=== PATIENT | female | born 1935 | race Caucasian/White ===

== ENCOUNTER 2017-10-16 13:09 | Emergency (ER) | payer MEDICARE, BC ==
[~2017-10-16] VITALS: Ht 162.6 cm; Wt 86.2 kg
--- NOTE | 2017-10-16 13:15 | NUR ---
BB GRANDSON FOR ON/OFF WEAKNESS, NAUSEA X 8 DAYS. STATES SHE MAY BE DEHYDRATED. PATIENT IS A/OX 4. BREATHING EVEN AND UNLABORED. NO SOB. NO NEURO DEFICITS. NAD. VITALS STABLE. SAFETY AND COMFORT MEASURES IN PLACE. AWAITING MD ORDERS.
[2017-10-16] MEDS ORDERED: IV NS 0.9% 1,000 ML BAG IV ONE (13:30)
--- NOTE | 2017-10-16 13:35 | NUR ---
NEW IV STARTED ON RAC, 20 G. BLOOD DRAWN AND SENT TO LAB.
--- NOTE | 2017-10-16 13:40 | NUR ---
PATIENT MEDICATED PER MD ORDERS.
[2017-10-16 13:53] LABS: BASOPHILS % (AUTO) 0.4 % (0.0-2.0); EOSINOPHILS # (AUTO) 0.1 /CMM (0.0-0.7); EOSINOPHILS % (AUTO) 1.7 % (0.0-6.0); HEMATOCRIT 35 % (33-45); LYMPHOCYTES # (AUTO) 0.8 /CMM (0.8-4.8); LYMPHOCYTES % (AUTO) 12.7 % (20.0-44.0); MEAN CORPUSCULAR HEMOGLOBIN 31 PG (26.0-33.0); MEAN CORPUSCULAR HGB CONC 35 g/dl (31.0-36.0); MEAN CORPUSCULAR VOLUME 90 fL (82-100); MONOCYTES # (AUTO) 0.8 /CMM (0.1-1.30); MONOCYTES % (AUTO) 11.7 % (2.0-12.0); NEUTROPHILS # (AUTO) 4.9 /CMM (1.8-8.9); NEUTROPHILS % (AUTO) 73.5 % (43.0-81.0); PLATELET COUNT (AUTO) 288 /CMM (150-450); RED BLOOD CELL COUNT(AUTO) 3.85 MIL/uL (4.0-5.2); WHITE BLOOD COUNT (AUTO) 6.6 K/uL (4.3-11.0)
[2017-10-16 14:05] LABS: CALCIUM, SERUM 9.4 mg/dL (8.5-10.1); CARBON DIOXIDE 25 mmol/L (21-32); CHLORIDE 101 mmol/L (98-107); CREATININE 1.1 mg/dL (0.6-1.3); GLUCOSE 100 mg/dL (74-106); POTASSIUM 4.1 mmol/L (3.5-5.1); SODIUM SERUM 135 mmol/L (136-145); UREA NITROGEN, BLOOD 24 mg/dL (7-18)
[2017-10-16 14:14] LABS: TROPONIN I < 0.017 ng/mL (0.00-0.056)
[2017-10-16 14:51] LABS: APPEARANCE,URINE Clear (CLEAR); BILIRUBIN,URINE Negative (NEGATIVE); BLOOD, URINE Trace-intact Ery/uL (NEGATIVE); COLOR,URINE Yellow (YELLOW); KETONES,URINE Negative (NEGATIVE); LEUKOCYTE ESTERASE ,URINE Negative (NEGATIVE); NITRITE, URINE Negative (NEGATIVE); PH,URINE 5.5 (5.0-8.0); PROTEIN,URINE Negative (NEGATIVE); UGLUCOSE Negative (NEGATIVE); UROBILINOGEN,URINE 0.2 EU/dL (0.2)
[2017-10-16] MEDS ORDERED: ONDANSETRON HCL/PF 4 MG/2 ML VIAL IV ONE (15:00)
[2017-10-16] MEDS ORDERED: IV NS 0.9% 500 ML BAG IV ONE (15:00)
[2017-10-16 15:05] LABS: BACTERIA,URINE Few /HPF (None Seen); SQUAMOUS EPITHELIAL CELL,UR Few /HPF (None Seen); WBC,URINE 0-2 /HPF (0-3)
--- NOTE | 2017-10-16 15:06 | NUR ---
PATIENT STATING SHE IS NOT NAUSEOUS. ALSO REFUSED LAST 500 ML OF FLUIDS, STATING SHE FEELS FINE AND IS OKAY TO GO HOME. MD PROVIDED DISCHARGE ORDERS. Patient discharged to home in stable condition. Written and verbal after care instructions given. Patient verbalizes understanding of instruction. IV removed. Catheter intact and site benign. Pressure and 4x4 applied to site. No bleeding noted. Patient left with grandson.
[2017-10-16 15:10] VITALS: BP 142/71
== END 2017-10-16 15:12 | disposition home or self-care (01) ==
LOC: ER 13:13
DX: R11.10 Vomiting, unspecified (principal); E86.0 Dehydration; E03.9 Hypothyroidism, unspecified; E78.00 Pure hypercholesterolemia, unspecified; I10 Essential (primary) hypertension; I25.10 Atherosclerotic heart disease of native coronary artery without angina pectoris; I48.91 Unspecified atrial fibrillation; Z88.0 Allergy status to penicillin; Z88.2 Allergy status to sulfonamides; Z95.0 Presence of cardiac pacemaker; Z88.5 Allergy status to narcotic agent; Z88.6 Allergy status to analgesic agent; Z88.8 Allergy status to other drugs, medicaments and biological substances; Z85.3 Personal history of malignant neoplasm of breast
CPT/HCPCS: 36415; 80048-TC; 81000-TC; 82962-TC; 84484-TC; 85025-TC; A4606; J7030; Z7610

== ENCOUNTER 2022-04-22 17:53 | Inpatient (IN) | payer MEDICARE, BC ==
[~2022-04-22] VITALS: Ht 162.6 cm; Wt 79.4 kg
[2022-04-22] MEDS ORDERED: IV NS 0.9% 500 ML BAG IV ONE (18:00)
--- NOTE | 2022-04-22 18:00 | NUR ---
[id number] home for worsening weakness, GLF today. PLACED ON BED, AA0X3, BREATHING EVEN AND UNLABORED.
--- NOTE | 2022-04-22 18:19 | NUR ---
IV ESTABLISHED L AC 18G, ADDITIONAL IV ESTABLISHED R FA 20G. LABS DRAWN AND COLLECTED AT BEDSIDE.
--- NOTE | 2022-04-22 18:23 | NUR ---
COVID SWAB DONE AND SENT TO LAB
[2022-04-22 19:06] LABS: CALCIUM, SERUM 8.8 mg/dL (8.5-10.1); CREATININE 1.1 mg/dL (0.6-1.3); POTASSIUM 3.2 mmol/L (3.5-5.1)
[2022-04-22 19:17] LABS: THYROID STIMULATING HORMONE 13.885 uIU/mL (0.358-3.74)
[2022-04-22 19:51] LABS: BASOPHILS % (AUTO) 0.4 % (0.0-2.0); EOSINOPHILS % (AUTO) 0.2 % (0.0-6.0); HEMATOCRIT 33 % (33-45); HEMOGLOBIN 11.1 g/dL (11.5-14.8); LYMPHOCYTES # (AUTO) 0.8 K/uL (0.8-4.8); LYMPHOCYTES % (AUTO) 10.6 % (20.0-44.0); MEAN CORPUSCULAR HGB CONC 33 g/dl (31.0-36.0); MEAN CORPUSCULAR VOLUME 85 fL (82-100); MONOCYTES # (AUTO) 0.7 K/uL (0.1-1.30); MONOCYTES % (AUTO) 8.9 % (2.0-12.0); NEUTROPHILS # (AUTO) 6.1 K/uL (1.8-8.9); NEUTROPHILS % (AUTO) 79.9 % (43.0-81.0); PLATELET COUNT (AUTO) 162 K/uL (150-450); RED BLOOD CELL COUNT(AUTO) 3.91 MIL/uL (4.0-5.2); WHITE BLOOD COUNT (AUTO) 7.6 K/uL (4.3-11.0)
[2022-04-22] MEDS ORDERED: IV NS 0.9% 1,000 ML IV ONE (20:30)
--- NOTE | 2022-04-22 21:30 | NUR ---
REPORT GIVEN TO RICKY GOMEZ ROOM-[id number] FOR WILLIAM
--- NOTE | 2022-04-22 22:00 | NUR ---
ICU NOTE REPORT RECEIVED FROM ZAHRA GOMEZ IN THE ER. PATIENT ARRIVED VIA GURNEY. PATIENT AWAKE AND ALERT A&OX3. ALL VSS. PATIENT SATTING AT 100% ON 2L NC. PATIENT VOIDING VIA OLIVEIRA CATHETER. IV RFA #20G AND LAF #18G BOTH PATENT, INTACT, AND FLUSHED WITH NS. PATIENT RUNNING 0.9% NS @250MLS/HR TO BE CHANGED TO 50MLS/HR WHEN BAG IS FINISHED. DIET CARDIAC LOW FAT/ LOW CHOL. SKIN INTACT. ALL SAFTEY FALL PRECAUTIONS IN PLACE BED LOCK ON, BED IN LOWEST POSITION, BED ALARM ON, SIDE RAILS UP, CALL LIGHT WITHIN REACH, PATIENT'S ROOM IN FRONT OF NURSING STATION. WILL CONTINUE TO MONITOR.
--- NOTE | 2022-04-22 22:30 | NUR ---
ICU NOTE PATIENT WAS CLEANED, CHANGED AND PROVIDED WITH WARM BLANKETS. PATIENT RESTING COMFORTABLY ON THE BED SAFETY PRECAUTIONS IN PLACE. ALL VSS. WILL CONTINUE TO MONITOR.
[2022-04-23] VITALS (35 sets, daily range): BP systolic 100–168; BP diastolic 44–91
[2022-04-23 06:05] LABS: BASOPHILS % (AUTO) 0.6 % (0.0-2.0); EOSINOPHILS % (AUTO) 1.9 % (0.0-6.0); HEMATOCRIT 29 % (33-45); HEMOGLOBIN 9.6 g/dL (11.5-14.8); LYMPHOCYTES # (AUTO) 1.1 K/uL (0.8-4.8); LYMPHOCYTES % (AUTO) 19.7 % (20.0-44.0); MEAN CORPUSCULAR HGB CONC 33 g/dl (31.0-36.0); MEAN CORPUSCULAR VOLUME 85 fL (82-100); MONOCYTES # (AUTO) 0.6 K/uL (0.1-1.30); NEUTROPHILS # (AUTO) 3.8 K/uL (1.8-8.9); NEUTROPHILS % (AUTO) 66.8 % (43.0-81.0); PLATELET COUNT (AUTO) 125 K/uL (150-450); RED BLOOD CELL COUNT(AUTO) 3.37 MIL/uL (4.0-5.2); WHITE BLOOD COUNT (AUTO) 5.7 K/uL (4.3-11.0)
[2022-04-23 06:38] LABS: ALANINE AMINOTRANSFERASE 43 U/L (12-78); ALKALINE PHOSPHATASE 78 U/L (46-116); ASPARTATE AMINOTRANSFERASE 104 U/L (15-37); BILIRUBIN,TOTAL 0.5 mg/dL (0.2-1.0); CALCIUM, SERUM 8.1 mg/dL (8.5-10.1); CARBON DIOXIDE 27 mmol/L (21-32); CHLORIDE 108 mmol/L (98-107); GLUCOSE 97 mg/dL (74-106); MAGNESIUM 2.3 mg/dL (1.8-2.4); PHOSPHORUS 3.7 mg/dL (2.5-4.9); POTASSIUM 2.9 mmol/L (3.5-5.1); SODIUM SERUM 141 mmol/L (136-145); TOTAL PROTEIN, SERUM 5.9 g/dL (6.4-8.2); UREA NITROGEN, BLOOD 23 mg/dL (7-18)
--- NOTE | 2022-04-23 07:13 | NUR ---
ICU CLOSING NOTE PATIENT AWAKE AND ALERT A&OX3. ALL VSS. PATIENT SATTING AT 100% ON 2L NC. PATIENT VOIDING VIA OLIVEIRA CATHETER. IV RFA #20G AND LAF #18G BOTH PATENT, INTACT, AND FLUSHED WITH NS. PATIENT RUNNING 0.9% NS 50MLS/HR. DIET CARDIAC LOW FAT/ LOW CHOL. SKIN INTACT. ALL SAFETY FALL PRECAUTIONS IN PLACE BED LOCK ON, BED IN LOWEST POSITION, BED ALARM ON, SIDE RAILS UP, CALL LIGHT WITHIN REACH, PATIENT'S ROOM IN FRONT OF NURSING STATION. ALL QUESTIONS ANSWERED AND CARE ENDORSED TO DAY SHIFT NURSE.
--- NOTE | 2022-04-23 07:27 | NUR ---
PAINTING DEPARTMENT SUPERVISOR OPENING NOTES Patient received in bed asleep on 2 liter 02 via n/c with 02 sat of 99%. Bed is in lowest and locked position. IV fluids running at 50 ml hour. Vitals WNL. Called CLERICAL SUPPORT Adal called regarding potassium level of 2.9. Per CLERICAL SUPPORT to contact pharmacy to replace. Will continue to monitor. Call light with in reach.
[2022-04-23] MEDS ORDERED: POTASSIUM CL. PREMIX PERIPHER. 50 ML IV SCH (07:30)
[2022-04-23 07:50] LABS: THYROID STIMULATING HORMONE 8.102 uIU/mL (0.358-3.74)
[2022-04-23] MEDS: POTASSIUM CHLORIDE 20 MEQ TAB.PRT.SR PO SCH ×3 (08:04→10:16)
[2022-04-23 08:51] LABS: IRON, SERUM 87 ug/dl (50-175); TOTAL IRON BINDING CAPACITY 313 ug/dl (250-450)
[2022-04-23] MEDS: ENOXAPARIN SODIUM 40 MG/0.4 ML DISP.SYRIN SQ SCH (08:54)
[2022-04-23 09:00] LABS: CHOLESTEROL 109 mg/dL (<200); FERRITIN 31 ng/mL (8-388); HDL CHOLESTEROL 54 mg/dL (40-60); LDL 49 mg/dL (0-99); TRIGLYCERIDES 52 mg/dL (30-150)
[2022-04-23] MEDS ORDERED: ACET-73 PO (09:11)
[2022-04-23] MEDS ORDERED: ACET-1951 PO (09:11)
[2022-04-23] MEDS ORDERED: LEVO75TA7 PO (09:11)
[2022-04-23] MEDS ORDERED: OMEP20CA15 PO (09:11)
[2022-04-23] MEDS ORDERED: EZET10TA32 PO (09:11)
[2022-04-23] MEDS ORDERED: APIX5TAB PO (09:11)
[2022-04-23] MEDS ORDERED: SERT50TA12 PO (09:11)
[2022-04-23] MEDS ORDERED: METO50TA16 PO (09:11)
[2022-04-23] MEDS ORDERED: FURO-145 PO (09:11)
[2022-04-23] MEDS ORDERED: PRAV80TA21 PO (09:11)
[2022-04-23] MEDS ORDERED: IV NS 0.9% 500 ML IV ONE (10:00)
[2022-04-23 12:06] LABS: BILIRUBIN,URINE NEGATIVE (NEGATIVE); COLOR,URINE YELLOW (YELLOW); LEUKOCYTE ESTERASE ,URINE LARGE (NEGATIVE); NITRITE, URINE POSITIVE (NEGATIVE); PH,URINE 5.5 (5.0-8.0); PROTEIN,URINE NEGATIVE (NEGATIVE); UGLUCOSE NEGATIVE (NEGATIVE); UROBILINOGEN,URINE 0.2 EU/dL (0.2)
[2022-04-23 12:14] LABS: BACTERIA,URINE Few /HPF (None Seen); SQUAMOUS EPITHELIAL CELL,UR Few /HPF (None Seen)
[2022-04-23] MEDS ORDERED: diphenhydrAMINE HCL 25 MG CAPSULE PO SCH (18:00)
[2022-04-23] MEDS: EZETIMIBE 10 MG TABLET PO SCH (18:30)
--- NOTE | 2022-04-23 19:39 | NUR ---
PRINCIPAL LAW CLERK Closing NOTES Patient received in bed awake on room air 02 sat of 98%. Bed is in lowest and locked position. IV fluids running at 50 ml hour. Vitals WNL. Patient assisted out of bed x 2 during shift but unable to stand for long period of time. Patient unable to ambulate to commode and refused bedpan. Will continue to monitor. Call light with in reach. Endorsed to next shift.
[2022-04-23] MEDS: IV NS 0.9% 1,000 ML IV PRN ×2 (20:42)
--- NOTE | 2022-04-23 20:54 | NUR ---
MANAGER RETAIL. INITIAL ASSESSMENT. RECEIVED THE PT REST IN BED. AWAKE, ALERT. FOLLOW COMMANDS. PT IS ROOM AIR. SAT 98%. NO ACUTE DISTRESS NOTED. SEARCH ENGINE OPTIMIZATION ANALYST SHOWING A FIB. HOB ELEVATED. BLAYNE LOWER EXTREMITY SWOLLEN. A FEBRILE. WILL CONTINUE TO MONITOR VITALS.
[2022-04-23] MEDS: ACETAMINOPHEN ES 500 MG TABLET PO SCH (22:04)
[2022-04-23] MEDS: ATORVASTATIN 10 MG TABLET PO SCH (22:04)
[2022-04-23] MEDS: diphenhydrAMINE HCL 25 MG CAPSULE PO SCH (22:04)
[2022-04-24] VITALS (31 sets, daily range): BP systolic 112–175; BP diastolic 27–130
--- NOTE | 2022-04-24 05:55 | NUR ---
curriculum designer, am care given. linen changed. pt tolerated room air. sat 98%. no acute distress noted. monitoring coordinator showing a fib . iv rt hand 20g. ivf ns 50 ml/h. hob elevated. a febrile. ill continue to monitor vitals.
--- NOTE | 2022-04-24 08:00 | NUR ---
rn notes received patient a/o x3 with forgetfulness. patient room air no acute respiratory distress, bedside monitor show HR- 103 afib, infusing NS @ 50ml/hr. patient refused pain, total care, assist turn and reposition q 2 hr. patient using diaper. due medication administered. call light within to reach will follow up.
[2022-04-24] MEDS: ENOXAPARIN SODIUM 40 MG/0.4 ML DISP.SYRIN SQ SCH (08:43)
[2022-04-24] MEDS: LEVOTHYROXINE SODIUM 75 MCG TABLET PO SCH (08:44)
[2022-04-24] MEDS: PANTOPRAZOLE 40 MG TABLET.DR PO SCH (08:44)
[2022-04-24] MEDS: ACETAMINOPHEN ES 500 MG TABLET PO SCH ×2 (08:45→22:00)
[2022-04-24] MEDS: SERTRALINE HCL 50 MG TABLET PO SCH (08:45)
[2022-04-24] MEDS: METOPROLOL TARTRATE 50 MG TABLET PO SCH ×2 (08:46→17:10)
[2022-04-24] MEDS: LEVOFLOXACIN (250MG) 250 MG TABLET PO SCH (08:46)
[2022-04-24 09:03] LABS: ALANINE AMINOTRANSFERASE 52 U/L (12-78); ALBUMIN 3.6 g/dL (3.4-5.0); ALKALINE PHOSPHATASE 86 U/L (46-116); ASPARTATE AMINOTRANSFERASE 103 U/L (15-37); BILIRUBIN,TOTAL 0.6 mg/dL (0.2-1.0); CALCIUM, SERUM 8.8 mg/dL (8.5-10.1); CARBON DIOXIDE 26 mmol/L (21-32); CHLORIDE 103 mmol/L (98-107); CREATININE 0.9 mg/dL (0.6-1.3); GLUCOSE 94 mg/dL (74-106); PHOSPHORUS 2.4 mg/dL (2.5-4.9); POTASSIUM 3.2 mmol/L (3.5-5.1); SODIUM SERUM 139 mmol/L (136-145); TOTAL PROTEIN, SERUM 6.8 g/dL (6.4-8.2); UREA NITROGEN, BLOOD 14 mg/dL (7-18)
[2022-04-24 09:11] LABS: CREATINE KINASE, TOTAL 2335 U/L (26-192)
--- NOTE | 2022-04-24 10:30 | NUR ---
RN NOTES PT WITH THE PATIENT, PATIENT STAND UP WITH ASSIST WITH AND ABLE TO MARCHING IN THE PLACE, BECAUSE OF PAIN BLE BACK TO THE BED. DAUGHTER NEXT TO THE BED.
[2022-04-24 10:34] LABS: BASOPHILS % (AUTO) 0.6 % (0.0-2.0); EOSINOPHILS % (AUTO) 0.7 % (0.0-6.0); HEMATOCRIT 30 % (33-45); HEMOGLOBIN 10.1 g/dL (11.5-14.8); LYMPHOCYTES # (AUTO) 0.8 K/uL (0.8-4.8); LYMPHOCYTES % (AUTO) 9.4 % (20.0-44.0); MEAN CORPUSCULAR HGB CONC 34 g/dl (31.0-36.0); MEAN CORPUSCULAR VOLUME 85 fL (82-100); MONOCYTES # (AUTO) 0.9 K/uL (0.1-1.30); MONOCYTES % (AUTO) 11.6 % (2.0-12.0); NEUTROPHILS # (AUTO) 6.2 K/uL (1.8-8.9); NEUTROPHILS % (AUTO) 77.7 % (43.0-81.0); PLATELET COUNT (AUTO) 140 K/uL (150-450); RED BLOOD CELL COUNT(AUTO) 3.52 MIL/uL (4.0-5.2); WHITE BLOOD COUNT (AUTO) 7.9 K/uL (4.3-11.0)
[2022-04-24] MEDS ORDERED: POTASSIUM CHLORIDE 10 MEQ TABLET.SA PO ONE (11:00)
[2022-04-24] MEDS ORDERED: IV NS 0.9% 1,000 ML IV ONE (11:00)
--- NOTE | 2022-04-24 11:00 | NUR ---
RN NOTES SEEN HOSPITALIST AND PER LAB RESULT GET NEW ORDER 1000 ML NS@200ML/HR X1,ORDER TAKEN AND CARRIED OUT.
[2022-04-24] MEDS ORDERED: K PHOS NEUTRAL 250 MG TABLET PO ONE (16:00)
[2022-04-24] MEDS: IV NS 0.9% 1,000 ML IV PRN (17:02)
[2022-04-24] MEDS: EZETIMIBE 10 MG TABLET PO SCH (17:10)
--- NOTE | 2022-04-24 18:09 | NUR ---
RN NOTES PM CARE DONE, DUE MEDICATION ADMINISTERED, PATIENT WILL TRANSFER TO THE TELE UNIT ROOM 304 BED 1 . FAMILY NEXT TO THE BED. REPORT GIVEN TELE UNIT PATRICIA ARREOLA.PATIENT WILL TRANSFER TO THE TELE UNIT VIA NIGHT NURSE.
--- NOTE | 2022-04-24 19:30 | NUR ---
RN NOTES: RECEIVED REPORT FROM BED CONTROL SPECIALIST, PT WILL BE TRANSFERRED AT PM SHIFT, ENDORSED TO PM TAPE FOLDING MACHINE OPERATOR.
--- NOTE | 2022-04-24 21:41 | NUR ---
END FINDER TWISTING DEPARTMENT NOTES PATIENT AWAKE AND ALERT A&OX3. PT ON ROOM AIR TOLERATING WELL. LAC #18G PATIENT RUNNING 0.9% NS 50MLS/HR. SKIN INTACT. PT PLACED. ON TELE MONITOR READING A-FIB 90S CONTROLLED ALL SAFETY FALL PRECAUTIONS IN PLACE BED LOCK ON, BED IN LOWEST POSITION, BED ALARM ON, SIDE RAILS UP, CALL LIGHT WITHIN REACH, TABLE WITHIN REACH. PATIENT'S ROOM CHANGED FOR 304-2 TO 324-2 PER PT REQUEST FRONT OF NURSING STATION. ALL NEEDS MET AT THIS TIME.WILL CONTINUE TO MONITOR.
--- NOTE | 2022-04-24 21:58 | NUR ---
MECHANICAL ARTIST NOTES PT REFUSED SCHEDULED MEDS WILL TRY AGAIN LATER.
[2022-04-24] MEDS: diphenhydrAMINE HCL 25 MG CAPSULE PO SCH ×2 (22:00→23:51)
[2022-04-24] MEDS: ATORVASTATIN 10 MG TABLET PO SCH (22:00)
--- NOTE | 2022-04-24 22:29 | NUR ---
TELE NOTES PT REFUSING TELE MONITOR AND VITAL SIGNS AT THIS TIME PER PT " I DON'T WANT ANYONE ELSE COMING INTO MY ROOM UNTIL MORNING DO YOU UNDERSTAND? .. I DON'T WANT ANY MORE PILLS EITHER THANK YOU AND DANAE" RISK AND BENEFITS EXPLAINED X3 REFUSED X3 CHARGE NURSE AWARE.
--- NOTE | 2022-04-24 23:26 | NUR ---
TEACHER TUTOR NOTES PT HAS EPISODE OF CONFUSION FORGOT WHERE SHE WAS. PT IS ABLE TO BE REORIENTED WITH SOME EFFORT AND CONTINUOS REMINDED OF HER CONDITION AND WHY SHE IS THE HOSPITAL PT IS AGREEABLE TO PUT TELE MONITOR BACK ON AND HAVE VITAL SIGNS CHECKED AT THIS TIME, BUT CONTINUOS TO REFUSED SCHEDULED MEDICATION DESPITE MULTIPLE ATTEMPTS. PT WAS GIVEN BED BATH AND ALL LINEN WHERE CHANGED. WARM BLANKETS PROVIDED. WILL CONTINUE TO MONITOR PT CLOSELY.
--- NOTE | 2022-04-24 23:55 | NUR ---
RECOVERY MANAGER NOTES PT AGREEABLE TO TAKE BENADRYL AT THIS TIME. BENADRYL TAKEN TOLERATED WELL.
[2022-04-25] VITALS (7 sets, daily range): BP systolic 129–156; BP diastolic 62–98
[2022-04-25 05:56] LABS: BASOPHILS % (AUTO) 0.2 % (0.0-2.0); EOSINOPHILS % (AUTO) 0.2 % (0.0-6.0); HEMATOCRIT 29 % (33-45); LYMPHOCYTES # (AUTO) 0.9 K/uL (0.8-4.8); LYMPHOCYTES % (AUTO) 9.8 % (20.0-44.0); MEAN CORPUSCULAR HGB CONC 35 g/dl (31.0-36.0); MEAN CORPUSCULAR VOLUME 84 fL (82-100); NEUTROPHILS # (AUTO) 7.2 K/uL (1.8-8.9); NEUTROPHILS % (AUTO) 78.8 % (43.0-81.0); PLATELET COUNT (AUTO) 129 K/uL (150-450); RED BLOOD CELL COUNT(AUTO) 3.45 MIL/uL (4.0-5.2); WHITE BLOOD COUNT (AUTO) 9.1 K/uL (4.3-11.0)
--- NOTE | 2022-04-25 06:38 | NUR ---
SWABBER NOTES PT IS A/O X2-3 WITH MULTIPLE EPISODE OF CONFUSION AND FORGETFULNESS. PT IS ABLE TO BE REORIENTED BUT WITH MUCH DIFFICULTY AT TIMES. PT ON TELE MONITOR AT THIS TIME. PT HAS LAC 18 G RUINING NS @50ML/HR TOLERATING WELL. PT KEPT CLEAN AND DRY AT ALL TIMES. ALL NEEDS MET. BED LINEN CHANGED BED BATH PROVIDED. PT BILATERAL SIDE RAILS UP FOR SAFETY. BED ALARM OF FOR SAFETY. TABLE WITHIN REACH. WILL ENDORSE CARE TO DAY SHIFT NURSE.
[2022-04-25 06:55] LABS: CALCIUM, SERUM 8.8 mg/dL (8.5-10.1); CARBON DIOXIDE 25 mmol/L (21-32); CHLORIDE 98 mmol/L (98-107); CREATININE 0.8 mg/dL (0.6-1.3); GLUCOSE 114 mg/dL (74-106); MAGNESIUM 1.6 mg/dL (1.8-2.4); PHOSPHORUS 3.4 mg/dL (2.5-4.9); POTASSIUM 3.1 mmol/L (3.5-5.1); SODIUM SERUM 135 mmol/L (136-145); UREA NITROGEN, BLOOD 12 mg/dL (7-18)
--- NOTE | 2022-04-25 07:20 | NUR ---
BUSINESS PROPOSAL REP NOTES PT PULLED PUT IV ACCESS DAY SHIFT NURSE AWARE. NO BLEEDING AT SITE.
--- NOTE | 2022-04-25 07:30 | NUR ---
SBA BUSINESS DEVELOPMENT OFFICER OPENING NOTES: RECEIVED PT IN BED AWAKE AND TRYING TO GET UP IN HER BED. PT IS ALERT ORIENTED X3 WITH EPISODES OF CONFUSION AND FORGETFULNESS, NEED FREQUENT REORIENTATION. NO SOB OR CARDIAC DISTRESS NOTED. NO IV ACCESS, PULLED OUT IV. SAFETY PRECAUTIONS MAINTAINED: BED IN LOCKED AND LOWEST POSITION, SIDE RAILS UP X 2, BED ALARM ON. CALL LIGHT IN EASY REACH FOR HELP. WILL CONTINUE TO MONITOR.
[2022-04-25] MEDS: LEVOTHYROXINE SODIUM 75 MCG TABLET PO SCH (07:45)
[2022-04-25] MEDS: PANTOPRAZOLE 40 MG TABLET.DR PO SCH (07:45)
--- NOTE | 2022-04-25 08:30 | NUR ---
RN NOTES: RE-INSERTED IV ACCESS ON LEFT FOREARM GAUGE 22. PATENT AND INTACT.
[2022-04-25] MEDS: Magnesium 1GM/D5W 100ML PREMIX 100 ML IV SCH ×2 (08:41→10:18)
[2022-04-25] MEDS: SERTRALINE HCL 50 MG TABLET PO SCH (08:42)
[2022-04-25] MEDS: POTASSIUM CHLORIDE 20 MEQ TAB.PRT.SR PO SCH ×3 (08:43→11:32)
[2022-04-25] MEDS: METOPROLOL TARTRATE 50 MG TABLET PO SCH ×2 (08:44→17:48)
[2022-04-25] MEDS: ACETAMINOPHEN ES 500 MG TABLET PO SCH (08:44)
[2022-04-25] MEDS: LEVOFLOXACIN (250MG) 250 MG TABLET PO SCH (08:44)
[2022-04-25] MEDS: APIXABAN 5 MG TABLET PO SCH ×2 (08:49→17:49)
[2022-04-25] MEDS ORDERED: POTASSIUM CHLORIDE 20 MEQ TAB.PRT.SR PO ONE (09:00)
[2022-04-25] MEDS ORDERED: LEVO250T59 PO (09:53)
[2022-04-25] MEDS: EZETIMIBE 10 MG TABLET PO SCH (17:47)
--- NOTE | 2022-04-25 19:07 | NUR ---
MS RN CLOSING NOTES: PATIENT WILL BE DC TO [facility] ACCOMPANIED BY EMT VIA GURИВАН. PATIENT ALERT AND ORIENTED X 3 WITH EPISODES OF CONFUSION AND FORGETFULNESS. DISCHARGE PAPERS SIGNED BY MS ROONEY AND BELONGINGS LIST SIGNED BY DAUGHTER. IDENTIFICATION BAND KEPT IN PLACE. IV ACCESS ON LEFT FOREARM IN PLACE ON LFA GAUGE 22. REPORT GIVEN TO RN [facility]. ENDORSED TO INBOUND SALES ADVISOR NURSE FOR WILLIAM.
--- NOTE | 2022-04-25 20:40 | NUR ---
RN NOTES; PT WAS PICKED UP BY [facility] WITH [facility].PT WAS STABLE NO SIGN SOB/DISTRESS NOTED.V/S WAS TAKEN WITHIN NORMAL LIMITS.IV ACCESS WAS REMOVE NO BLEEDING NOTED. TOOK THE BELONGING .
[2022-04-25] MEDS ORDERED: diphenhydrAMINE HCL ELIX 25 MG/10 ML UDC PO SCH (22:00)
== END 2022-04-25 20:20 | DRG 640 ==
LOC: ER 17:57 → TRANSITION 19:00 → ICU 21:14 → TELE 04-24 19:46 → MED 04-25 10:29
PROVIDERS: ADMIT Registered Nurse; ATTEND Internal Medicine
DX: E86.0 Dehydration (principal); I50.33 Acute on chronic diastolic (congestive) heart failure; N17.0 Acute kidney failure with tubular necrosis; I48.92 Unspecified atrial flutter; M62.82 Rhabdomyolysis; N39.0 Urinary tract infection, site not specified; I11.0 Hypertensive heart disease with heart failure; Z66 Do not resuscitate; Z20.822 Contact with and (suspected) exposure to COVID-19; I25.10 Atherosclerotic heart disease of native coronary artery without angina pectoris; I48.91 Unspecified atrial fibrillation; Z95.0 Presence of cardiac pacemaker; E78.5 Hyperlipidemia, unspecified; E03.9 Hypothyroidism, unspecified; F03.90 Unspecified dementia, unspecified severity, without behavioral disturbance, psychotic disturbance, mood disturbance, and anxiety; Z98.82 Breast implant status; Z85.3 Personal history of malignant neoplasm of breast; Z90.10 Acquired absence of unspecified breast and nipple; Z88.6 Allergy status to analgesic agent; Z88.5 Allergy status to narcotic agent; Z88.0 Allergy status to penicillin; Z88.2 Allergy status to sulfonamides; Z88.8 Allergy status to other drugs, medicaments and biological substances; E66.9 Obesity, unspecified; Z68.30 Body mass index [BMI] 30.0-30.9, adult; D64.9 Anemia, unspecified; E87.6 Hypokalemia; F32.A Depression, unspecified; I49.5 Sick sinus syndrome; Z91.81 History of falling; B96.89 Other specified bacterial agents as the cause of diseases classified elsewhere; W18.30XA Fall on same level, unspecified, initial encounter; Y92.9 Unspecified place or not applicable
CPT/HCPCS: 36415; 71045-TC; 80048-TC; 80053-TC; 80061-TC; 81001; 82550-TC; 82553; 82728-TC; 82962-TC; 83540-TC; 83735-TC; 83880; 84100-TC; 84439-TC; 84443-TC; 84484-TC; 85025-TC; 85730-TC; 87040-TC; 87081-TC; 87086-TC; 87186-TC; 93307-TC; 93880-TC; 93970-TC; 94799-TC; 97116-TC; 97530-TC; G0378; J1650; J3475; J3480; J7030; J7040; J7050; Q0163

== ENCOUNTER 2022-09-29 17:29 | Emergency (ER) | payer MEDICARE, BC ==
[~2022-09-29] VITALS: Ht 167.6 cm; Wt 73.0 kg
[~2022-09-29 17:29] MED LIST: ACET-1951 PO; ACET-73 PO; APIX5TAB PO; EZET10TA32 PO; LEVO250T59 PO; LEVO75TA7 PO; METO50TA16 PO; OMEP20CA15 PO; SERT50TA12 PO
--- NOTE | 2022-09-29 18:05 | NUR ---
DR RÍOS AT BEDSIDE
--- NOTE | 2022-09-29 18:10 | NUR ---
BIB FAMILY, FOR POSSIBLE UTI AND DEHYDRATION EVAL. BROUGHT IN VIA WHEELCHAIR, AAOX4, BREATHING UNLABORED SATURATING AT 97%RA.
[2022-09-29] MEDS ORDERED: MORPHINE SULFATE INJ 4 MG/ML DISP.SYRIN ONE (18:22)
[2022-09-29] MEDS ORDERED: ONDANSETRON HCL/PF 4 MG/2 ML VIAL ONE (18:22)
[2022-09-29] MEDS ORDERED: IV NS 0.9% 1,000 ML BAG IV ONE (18:30)
[2022-09-29] MEDS ORDERED: ONDANSETRON HCL/PF 4 MG/2 ML VIAL IVP ONE (18:30)
[2022-09-29] MEDS ORDERED: MORPHINE SULFATE INJ 2 MG/ML DISP.SYRIN IV ONE (18:30)
--- NOTE | 2022-09-29 18:30 | NUR ---
PATIENT TAKEN TO CT [facility]IA [facility]
--- NOTE | 2022-09-29 18:45 | NUR ---
BLOOD DRAWN AND SENT TO LAB
[2022-09-29 19:50] LABS: ALBUMIN 3.7 g/dL (3.4-5.0); BILIRUBIN,DIRECT 0.1 mg/dL (0.0-0.2); BILIRUBIN,TOTAL 0.6 mg/dL (0.2-1.0); CALCIUM, SERUM 8.9 mg/dL (8.5-10.1); CREATININE 1.3 mg/dL (0.6-1.3); POTASSIUM 3.8 mmol/L (3.5-5.1); TOTAL PROTEIN, SERUM 6.9 g/dL (6.4-8.2)
[2022-09-29 20:12] LABS: BASOPHILS % (AUTO) 0.2 % (0.0-2.0); EOSINOPHILS % (AUTO) 0.4 % (0.0-6.0); HEMATOCRIT 33 % (33-45); LYMPHOCYTES # (AUTO) 0.9 K/uL (0.8-4.8); LYMPHOCYTES % (AUTO) 9.8 % (20.0-44.0); MEAN CORPUSCULAR HGB CONC 33 g/dl (31.0-36.0); MEAN CORPUSCULAR VOLUME 87 fL (82-100); MONOCYTES # (AUTO) 0.8 K/uL (0.1-1.30); MONOCYTES % (AUTO) 8.9 % (2.0-12.0); NEUTROPHILS # (AUTO) 7.6 K/uL (1.8-8.9); NEUTROPHILS % (AUTO) 80.7 % (43.0-81.0); PLATELET COUNT (AUTO) 138 K/uL (150-450); RED BLOOD CELL COUNT(AUTO) 3.81 MIL/uL (4.0-5.2); WHITE BLOOD COUNT (AUTO) 9.5 K/uL (4.3-11.0)
--- NOTE | 2022-09-29 20:21 | NUR ---
URINE SAMPLE SENT TO LAB
--- NOTE | 2022-09-29 21:15 | NUR ---
Patient does not wish to proceed with medical care recommended by ( ). Patient given information related to possible complications, up to and including , which could occur as a result of leaving the hospital at this time. Patient verbalizes understanding of risks involved due to leaving against medical advice. Patient has signed AMA form.
--- NOTE | 2022-09-29 21:15 | NUR ---
IV CANNULA REMOVED
[2022-09-29 21:21] LABS: BILIRUBIN,URINE NEGATIVE (NEGATIVE); COLOR,URINE YELLOW (YELLOW); LEUKOCYTE ESTERASE ,URINE 3+ (NEGATIVE); NITRITE, URINE NEGATIVE (NEGATIVE); PROTEIN,URINE NEGATIVE (NEGATIVE); UGLUCOSE NEGATIVE (NEGATIVE); UROBILINOGEN,URINE 0.2 EU/dL (0.2)
[2022-09-29 21:36] LABS: BACTERIA,URINE 3+ /HPF (None Seen); WBC,URINE 51-80 /HPF (0-3)
[2022-09-29] MEDS ORDERED: LACT10SO3 PO (21:40)
[2022-09-29] MEDS ORDERED: LEVO500T90 PO (21:40)
[2022-09-29 22:24] VITALS: BP 130/78
== END 2022-09-29 21:30 | disposition left against medical advice (07) ==
LOC: ER 17:43
DX: R45.1 Restlessness and agitation (principal); F03.90 Unspecified dementia, unspecified severity, without behavioral disturbance, psychotic disturbance, mood disturbance, and anxiety; N39.0 Urinary tract infection, site not specified; K59.00 Constipation, unspecified; R41.82 Altered mental status, unspecified; I11.0 Hypertensive heart disease with heart failure; I50.9 Heart failure, unspecified; E03.9 Hypothyroidism, unspecified; E78.00 Pure hypercholesterolemia, unspecified; I48.91 Unspecified atrial fibrillation; Z88.0 Allergy status to penicillin; Z88.2 Allergy status to sulfonamides; Z88.8 Allergy status to other drugs, medicaments and biological substances; Z79.899 Other long term (current) drug therapy
CPT/HCPCS: 99285; 70450; 96374; 71045; 96361; 96375; 93005; 74176; 85025; 80048; 87086; 83605; 83690; 80076; 81001; 36415; 84443; J2270; J2405; J7030